=== PATIENT | male | born 1940 | race Caucasian/White ===

== ENCOUNTER 2021-06-02 07:40 | Day surgery (SDC) | payer MEDICARE, OTHER ==
[2021-05-31 15:59] LABS: BASOPHILS % (AUTO) 0.7 % (0.0-5.0); EOSINOPHILS % (AUTO) 3.3 % (0.0-8.0); HEMATOCRIT 41.3 % (42-54); LYMPHOCYTES % (AUTO) 25.8 % (21.0-51.0); MEAN CORPUSCULAR HEMOGLOBIN 27.3 pg (27.0-33.0); MEAN CORPUSCULAR HGB CONC 32.2 g/dL (32.0-36.0); MEAN CORPUSCULAR VOLUME 84.8 fL (79-99); MONOCYTES % (AUTO) 8.9 % (3.0-13.0); PLATELET COUNT (AUTO) 186 K/uL (130-400); RED BLOOD CELL COUNT(AUTO) 4.87 MIL/uL (4.50-6.20); RED CELL DISTRIBUTION WIDTH 12.7 % (11.0-15.5); WHITE BLOOD COUNT (AUTO) 9.5 K/uL (4.8-10.8)
[2021-05-31 16:06] LABS: CREATININE 1.1 mg/dL (0.5-1.5); POTASSIUM 3.8 mmol/L (3.5-5.1)
[2021-06-01 12:48] VITALS: BP 155/68
[~2021-06-02] VITALS: Ht 175.3 cm; Wt 93.3 kg
[2021-06-02] VITALS (15 sets, daily range): BP systolic 130–179; BP diastolic 57–96
[~2021-06-02 07:40] MED LIST: ALBUTERAL IH; ATOR20TA65 PO; FLUT44HFA IH; INDO50CA98 PO; PHEN95TA44 PO; SOLI5 PO
[2021-06-02] MEDS ORDERED: LACTATED RINGERS 1000ML 1,000 ML IV ONE (07:42)
[2021-06-02] MEDS: CEFTRIAXONE 1G VIAL IVP SCH ×2 (08:30→10:03)
[2021-06-02] MEDS ORDERED: ROPI0.257 PO (08:40)
[2021-06-02] MEDS ORDERED: CYCL5TAB PO (08:40)
[2021-06-02] MEDS ORDERED: OMEP40CA21 PO (08:40)
[2021-06-02] MEDS ORDERED: FINA5TAB41 PO (08:40)
[2021-06-02] MEDS ORDERED: MIRA50TA PO (08:40)
[2021-06-02] MEDS ORDERED: VIT1CAPS47 PO (08:40)
[2021-06-02] MEDS ORDERED: TAMS-1 PO (08:40)
[2021-06-02] MEDS ORDERED: BACL10TA PO (08:40)
[2021-06-02] MEDS ORDERED: LEVE500T98 PO (08:40)
[2021-06-02] MEDS ORDERED: GABA-529 PO (08:40)
[2021-06-02] MEDS ORDERED: ATOR10TA69 PO (08:41)
[2021-06-02] MEDS ORDERED: IOHEXOL-350 50ML VIAL IV ONE (09:22)
[2021-06-02] MEDS ORDERED: GLYCOPYRROLATE 1 MG/5 ML SYRINGE ONE (09:41)
[2021-06-02] MEDS ORDERED: ROCURONIUM 10MG/1ML SYR 10 MG/ML ML ONE (09:41)
[2021-06-02] MEDS ORDERED: FENTANYL CITRATE PF 50 MCG/1 ML 2ML VIAL ONE ×2 (09:42→10:30)
[2021-06-02] MEDS ORDERED: PROPOFOL 10 MG/ML 20ML VIAL IV ONE (09:42)
[2021-06-02] MEDS ORDERED: LIDOCAINE PF 100MG/5ML (2%) SYRINGE 5ML ONE (09:44)
[2021-06-02] MEDS ORDERED: SUCCINYLCHOLINE 200MG/10ML SYR ONE (10:00)
[2021-06-02] MEDS ORDERED: NEOSTIGMINE 5MG/5ML SYR IV ONE (10:37)
[2021-06-02] MEDS ORDERED: OPIUM/BELLADONNA ALKALOIDS 1 EACH SUPP.RECT RC ONE (10:37)
[2021-06-02] MEDS ORDERED: ONDANSETRON 4MG INJ ONE (10:41)
[2021-06-02] MEDS ORDERED: PHENAZOPYRIDINE HCL 200 MG TABLET ONE (11:14)
== END 2021-06-02 12:32 | disposition home or self-care (01) ==
LOC: DAH 07:40
PROVIDERS: ATTEND Urology
DX: N30.11 Interstitial cystitis (chronic) with hematuria (principal); N35.819 Other urethral stricture, male, unspecified site; J45.909 Unspecified asthma, uncomplicated; I10 Essential (primary) hypertension; E78.5 Hyperlipidemia, unspecified; K21.9 Gastro-esophageal reflux disease without esophagitis; Z98.890 Other specified postprocedural states; Z90.49 Acquired absence of other specified parts of digestive tract; Z88.8 Allergy status to other drugs, medicaments and biological substances; Z87.891 Personal history of nicotine dependence
CPT/HCPCS: 36415; 52204; 74420; 80048; 85025; 87635; 88305; 88341; 88342; A4215; A4221; A4222; A4223; A4344; A4354; A4358; A4510; A4600; A4663; A6260; C1758; C9803; J0330; J0696; J2001; J2405; J2704; J2710; J3010 ×2; J3490; J7120 ×2; Q9967